=== PATIENT | male | born 1955 | race Caucasian/White ===

== ENCOUNTER 2020-09-02 19:21 | Inpatient (IN) | payer BC, OTHER ==
[2020-09-02 20:22] LABS: BASO % 0.5 % (0-2.0); EOS % 4.9 % (0-4.5); HEMOGLOBIN 14.2 GM/dl (11.7-16.9); LYMPH % 37.8 % (8-40); MCHC 33.7 g/dl (32.0-35.9); MEAN CELL VOLUME 83.1 fl (80-96); MEAN PLT VOLUME 7.9 fl (7.5-11.1); MONO % 6.7 % (3.8-10.2); NEUT % 50.1 % (42.8-82.8); PLATELET COUNT 234 K/MM3 (134-434); RBC 5.06 M/mm3 (4.00-5.60); RDW 13.8 % (11.9-15.9); WHITE BLOOD COUNT 6.5 K/mm3 (4.0-10.8)
[2020-09-02 20:30] LABS: ACTIVATED PTT 26.6 SECONDS (25.2-36.5)
[2020-09-02 20:34] LABS: INR 1.18 (0.82-1.09); PROTHROMBIN TIME (PATIENT) 13.1 SEC (10.2-13.0)
[2020-09-02 20:44] LABS: ALBUMIN 3.8 g/dl (3.4-5.0); BILIRUBIN,TOTAL 0.5 mg/dl (0.2-1); CALCIUM 8.9 mg/dl (8.5-10); CREATININE 0.9 mg/dl (0.55-1.3); TOT PROT 6.7 g/dl (6.4-8.2)
[2020-09-02] MEDS ORDERED: ENOXAPARIN NA (PORCINE) 100 MG/1 ML DISP.SYRIN SQ ONE ×2 (21:14→21:21)
[2020-09-03] MEDS: ZOLPIDEM TARTRATE 5 MG TABLET PO PRN ×2 (00:15→21:33)
[2020-09-03 02:09] VITALS: BMI 33.8
[2020-09-03] MEDS: INSULIN SLIDING SCALE (NOVOLOG) 1 VIAL SQ SCH ×4 (06:47→21:32)
[2020-09-03 08:30] LABS: BASO % 0.7 % (0-2.0); EOS % 5.8 % (0-4.5); HEMATOCRIT 39.8 % (35.4-49); HEMOGLOBIN 13.1 GM/dl (11.7-16.9); LYMPH % 46.9 % (8-40); MCH 27.4 pg (25.7-33.7); MCHC 32.8 g/dl (32.0-35.9); MEAN CELL VOLUME 83.6 fl (80-96); MEAN PLT VOLUME 8.3 fl (7.5-11.1); MONO % 7.9 % (3.8-10.2); NEUT % 38.7 % (42.8-82.8); PLATELET COUNT 213 K/MM3 (134-434); RBC 4.76 M/mm3 (4.00-5.60); RDW 13.9 % (11.9-15.9); WHITE BLOOD COUNT 6.1 K/mm3 (4.0-10.8)
[2020-09-03 08:44] LABS: CALCIUM 8.6 mg/dl (8.5-10); CREATININE 0.9 mg/dl (0.55-1.3)
[2020-09-03] MEDS: ENOXAPARIN NA (PORCINE) 100 MG/1 ML DISP.SYRIN SQ SCH ×2 (09:48→21:29)
[2020-09-03] MEDS: LOSARTAN POTASSIUM 50 MG TABLET PO SCH (09:49)
[2020-09-03] MEDS: AMITRIPTYLINE HCL 25 MG TABLET PO SCH (21:33)
[2020-09-04] MEDS ORDERED: HEPARIN NA (PORCINE) 5,000 UNITS/ML 1ML VIAL IV ONE
[2020-09-04] MEDS ORDERED: IOVERSOL 320 MG/ML ML IV ONE
[2020-09-04] MEDS ORDERED: LIDOCAINE HCL 1%, 10 MG/ML (20ML VIAL) INF ONE
[2020-09-04] MEDS: INSULIN SLIDING SCALE (NOVOLOG) 1 VIAL SQ SCH ×4 (06:39→21:30)
[2020-09-04 08:22] LABS: BASO % 0.7 % (0-2.0); EOS % 4.7 % (0-4.5); HEMATOCRIT 42.2 % (35.4-49); HEMOGLOBIN 14.6 GM/dL (11.7-16.9); LYMPH % 38.5 % (8-40); MCH 28.4 pg (25.7-33.7); MCHC 34.5 g/dl (32.0-35.9); MEAN CELL VOLUME 82.3 fl (80-96); MEAN PLT VOLUME 7.5 fl (7.5-11.1); MONO % 6.5 % (3.8-10.2); NEUT % 49.6 % (42.8-82.8); PLATELET COUNT 242 K/MM3 (134-434); RBC 5.13 M/mm3 (4.00-5.60); RDW 14.6 % (11.9-15.9); WHITE BLOOD COUNT 6.6 K/mm3 (4.0-10.0)
[2020-09-04] MEDS ORDERED: HEPARIN NA (PORCINE) 5,000 UNITS/ML 1ML VIAL ONE ×2 (09:08→12:31)
[2020-09-04] MEDS: ENOXAPARIN NA (PORCINE) 100 MG/1 ML DISP.SYRIN SQ SCH ×2 (09:45→21:29)
[2020-09-04 10:00] LABS: ALBUMIN 3.7 g/dl (3.4-5.0); BILIRUBIN,TOTAL 0.5 mg/dL (0.2-1); CALCIUM 8.3 mg/dL (8.5-10.1); CREATININE 0.8 mg/dL (0.55-1.3); MAGNESIUM 1.9 mg/dL (1.8-2.4); TOT PROT 7.2 g/dl (6.4-8.2)
[2020-09-04] MEDS: LOSARTAN POTASSIUM 50 MG TABLET PO SCH (10:12)
[2020-09-04] MEDS ORDERED: PROPOFOL 20 ML ONE (11:07)
[2020-09-04] MEDS ORDERED: ROCURONIUM BROMIDE 50 MG/5 ML SYRINGE ONE (11:19)
[2020-09-04] MEDS ORDERED: MIDAZOLAM HCL 2 MG/2 ML SINGLE DOSE VIAL ONE ×2 (11:19→12:13)
[2020-09-04] MEDS ORDERED: ALTEPLASE 2 MG VIAL IVPB ONE (12:00)
[2020-09-04] MEDS ORDERED: ceFAZolin SODIUM 1 GM VIAL ONE (12:31)
[2020-09-04] MEDS ORDERED: ALTEPLASE 2 MG VIAL NR ONE (12:48)
[2020-09-04] MEDS ORDERED: LACTATED RINGERS SOLUTION 1,000 ML IV SCH (13:45)
[2020-09-04] MEDS: ONDANSETRON 4 MG/2 ML VIAL IVPUSH PRN (16:59)
[2020-09-04] MEDS ORDERED: PT OWN MED DRAWER 7, Y5N ONE (20:59)
[2020-09-04] MEDS ORDERED: INSULIN (NOVOLOG) ASPART 100 UNITS/ML 10ML VIAL ONE (21:27)
[2020-09-04] MEDS: INSULIN (LEVEMIR) 100 UNITS/ML UNITS SQ SCH (21:30)
[2020-09-04] MEDS: ZOLPIDEM TARTRATE 5 MG TABLET PO PRN (21:32)
[2020-09-04] MEDS: AMITRIPTYLINE HCL 25 MG TABLET PO SCH (21:48)
[2020-09-05] MEDS: INSULIN SLIDING SCALE (NOVOLOG) 1 VIAL SQ SCH ×4 (06:12→21:35)
[2020-09-05 07:31] LABS: HEMATOCRIT 40.4 % (35.4-49); HEMOGLOBIN 13.9 GM/dL (11.7-16.9); MCH 28.4 pg (25.7-33.7); MCHC 34.5 g/dl (32.0-35.9); MEAN CELL VOLUME 82.3 fl (80-96); MEAN PLT VOLUME 7.7 fl (7.5-11.1); PLATELET COUNT 230 K/MM3 (134-434); RDW 14.9 % (11.9-15.9); WHITE BLOOD COUNT 9.8 K/mm3 (4.0-10.0)
[2020-09-05 07:53] LABS: ALBUMIN 3.8 g/dl (3.4-5.0); BLOOD UREA NITROGEN 22.4 mg/dL (7-18); CALCIUM 8.8 mg/dL (8.5-10.1)
[2020-09-05 07:56] LABS: CREATININE 1.4 mg/dL (0.55-1.3)
[2020-09-05 07:58] LABS: BILIRUBIN,TOTAL 1.6 mg/dL (0.2-1)
[2020-09-05] MEDS ORDERED: ACETAMINOPHEN 325 MG TABLET (FP) PO PRN ×2 (08:39→15:48)
[2020-09-05] MEDS ORDERED: LACTATED RINGERS SOLUTION 1,000 ML IV SCH (08:41)
[2020-09-05] MEDS: ENOXAPARIN NA (PORCINE) 100 MG/1 ML DISP.SYRIN SQ SCH ×2 (08:46→21:34)
[2020-09-05] MEDS: amLODIPine BESYLATE 5 MG TABLET (FP) PO SCH (09:19)
[2020-09-05] MEDS ORDERED: traMADol HCL 50 MG TABLET PO PRN (15:47)
[2020-09-05] MEDS: ONDANSETRON 4 MG/2 ML VIAL IVPUSH PRN (18:14)
[2020-09-05] MEDS ORDERED: INSULIN (NOVOLOG) ASPART 100 UNITS/ML 10ML VIAL ONE (21:09)
[2020-09-05] MEDS: INSULIN (LEVEMIR) 100 UNITS/ML UNITS SQ SCH (21:33)
[2020-09-05] MEDS ORDERED: PT OWN MED DRAWER 7, Y5N ONE (21:37)
[2020-09-05] MEDS: AMITRIPTYLINE HCL 25 MG TABLET PO SCH (22:18)
[2020-09-05] MEDS: ZOLPIDEM TARTRATE 5 MG TABLET PO PRN (22:20)
[2020-09-06] MEDS: INSULIN SLIDING SCALE (NOVOLOG) 1 VIAL SQ SCH ×2 (06:08→11:37)
[2020-09-06 08:43] LABS: ALBUMIN 3.1 g/dl (3.4-5.0); BLOOD UREA NITROGEN 22.6 mg/dL (7-18); CALCIUM 7.9 mg/dL (8.5-10.1)
[2020-09-06 08:46] LABS: CREATININE 1.4 mg/dL (0.55-1.3)
[2020-09-06 08:48] LABS: BILIRUBIN,TOTAL 0.6 mg/dL (0.2-1); TOT PROT 6.1 g/dl (6.4-8.2)
[2020-09-06 09:42] VITALS: BP 141/70; PULSE 83; TEMP 97.8
[2020-09-06] MEDS: ENOXAPARIN NA (PORCINE) 100 MG/1 ML DISP.SYRIN SQ SCH (09:42)
[2020-09-06] MEDS: amLODIPine BESYLATE 5 MG TABLET (FP) PO SCH (09:42)
[2020-09-06] MEDS: LOSARTAN POTASSIUM 50 MG TABLET PO SCH (09:42)
== END 2020-09-06 15:04 | disposition home or self-care (01) | DRG 271 ==
LOC: FER 19:21 → FM/S 23:51 → J6S 09-04 02:56
PROVIDERS: ADMIT Internal Medicine; ATTEND Internal Medicine
PROC: 06CG3ZZ Extirpation of Matter from Left External Iliac Vein, Percutaneous Approach (ICD-10-PCS; 2020-09-04)
PROC: 067G3ZZ Dilation of Left External Iliac Vein, Percutaneous Approach (ICD-10-PCS; 2020-09-04)
PROC: 067N3ZZ Dilation of Left Femoral Vein, Percutaneous Approach (ICD-10-PCS; 2020-09-04)
PROC: 3E04317 Introduction of Other Thrombolytic into Central Vein, Percutaneous Approach (ICD-10-PCS; 2020-09-04)
PROC: B50CYZZ Plain Radiography of Left Lower Extremity Veins using Other Contrast (ICD-10-PCS; 2020-09-04)
PROC: 06CN3ZZ Extirpation of Matter from Left Femoral Vein, Percutaneous Approach (ICD-10-PCS; principal; 2020-09-04 10:30)
DX: I82.412 Acute embolism and thrombosis of left femoral vein (principal); I87.1 Compression of vein; I82.432 Acute embolism and thrombosis of left popliteal vein; I10 Essential (primary) hypertension; E11.40 Type 2 diabetes mellitus with diabetic neuropathy, unspecified; I45.10 Unspecified right bundle-branch block
CPT/HCPCS: 36415; 71045-TC-FY; 76000-TC-FY; 80048; 80053; 82962; 83735; 85025; 85027; 85610; 85730; 86850; 86900; 86901; 93005; 93971-TC; 94760; 99285-25; C9803; J1644; J2997; U0003; U0005